=== PATIENT | male | born 1980 | race Caucasian/White ===

== ENCOUNTER 2018-09-05 02:15 | Emergency (ER) | payer BC, OTHER ==
[~2018-09-05] VITALS: Ht 172.7 cm; Wt 65.3 kg
[2018-09-05] MEDS ORDERED: MORPHINE SULFATE INJ 2 MG/ML DISP.SYRIN IV ONE (02:30)
[2018-09-05] MEDS ORDERED: IV NS 0.9% 1,000 ML IV PRN (02:30)
--- NOTE | 2018-09-05 02:32 | NUR ---
BIBS FOR C/O L SHOULDER DISLOCATION. NO OTHER INJURIES. VSS. NO OTHER HX. [employer] AT THE BED SIDE, WILL CONT TO MONITOR,
[2018-09-05] MEDS ORDERED: MORPHINE SULFATE INJ 2 MG/ML DISP.SYRIN ONE (02:44)
[2018-09-05 02:55] LABS: BASOPHILS # (AUTO) 0.1 /CMM (0.0-0.2); BASOPHILS % (AUTO) 1.1 % (0.0-2.0); EOSINOPHILS % (AUTO) 3.2 % (0.0-6.0); HEMATOCRIT 47 % (39-51); HEMOGLOBIN 16.2 g/dL (13.5-17.5); LYMPHOCYTES # (AUTO) 1.7 /CMM (0.8-4.8); LYMPHOCYTES % (AUTO) 24.7 % (20.0-44.0); MEAN CORPUSCULAR HGB CONC 35 g/dl (31.0-36.0); MEAN CORPUSCULAR VOLUME 87 fL (80-96); MONOCYTES # (AUTO) 0.6 /CMM (0.1-1.30); MONOCYTES % (AUTO) 8.4 % (2.0-12.0); NEUTROPHILS # (AUTO) 4.4 /CMM (1.8-8.9); NEUTROPHILS % (AUTO) 62.6 % (43.0-81.0); PLATELET COUNT (AUTO) 381 /CMM (150-450); RED BLOOD CELL COUNT(AUTO) 5.41 MIL/uL (4.5-6.0)
--- NOTE | 2018-09-05 02:55 | NUR ---
PER TO HOLD THE IV NS
--- NOTE | 2018-09-05 02:55 | NUR ---
RAC#[id number] PIV STARTED. MORPHINE GIVEN ORDERED . AT THE BED SIDE .
[2018-09-05 02:57] VITALS: BP 134/87
[2018-09-05 02:59] LABS: CALCIUM, SERUM 9.1 mg/dL (8.5-10.1); POTASSIUM 3.8 mmol/L (3.5-5.1)
--- NOTE | 2018-09-05 03:20 | NUR ---
PT WAS D/C'D HOME IN STABLE CONDITION. REPORTED RELIEF OF PAIN TO 2-3/10.
== END 2018-09-05 03:30 | disposition home or self-care (01) ==
LOC: ER 02:19
DX: S43.015A Anterior dislocation of left humerus, initial encounter (principal); X58.XXXA Exposure to other specified factors, initial encounter; Y93.89 Activity, other specified; Y92.410 Unspecified street and highway as the place of occurrence of the external cause; Y99.8 Other external cause status
CPT/HCPCS: 23650; 36415; 73030 ×2; 80048; 85025; 96374; 99284; J2270; J7030